=== PATIENT | female | born 1960 | race Two or more races ===

== ENCOUNTER 2016-12-02 20:42 | Outpatient (CLI) | payer MEDICARE | END 2016-12-02 20:43 | disposition critical access hospital (66) | LOC: EMS 20:42 | PROVIDERS: ATTEND Surgery | DX: M25.562 Pain in left knee (principal); Y09 Assault by unspecified means | CPT/HCPCS: A0425; A0429 ==

== ENCOUNTER 2016-12-02 21:00 | Emergency (ER) | payer MEDICARE ==
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
[2016-12-02 22:53] VITALS: BP 169/98
--- NOTE | 2016-12-02 22:58 | XRAY Preliminary Report ---
Exam: XR Shoulder 3 View RT IMPRESSION: 1. No acute abnormality seen in the shoulder. [facility] SITE ID: [id number]
--- NOTE | 2016-12-02 22:59 | XRAY Preliminary Report ---
Exam: XR Femur 2V RT IMPRESSION: 1. No acute abnormality seen in the femur. [facility] SITE ID: [id number]
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
--- NOTE | 2016-12-02 23:01 | XRAY Preliminary Report ---
Exam: XR Toe(s) LT IMPRESSION: 1. No acute fracture or dislocation seen. [facility] SITE ID: [id number]
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
--- NOTE | 2016-12-02 23:04 | XRAY Report ---
EXAM: LEFT TOE RADIOGRAPHY EXAM DATE: 12/02/2016 10:38 PM. CLINICAL HISTORY: Pain after injury. COMPARISON: None. TECHNIQUE: 3 views. FINDINGS: Bones: No acute fracture seen. Joints: No dislocation. Joint spaces appear intact. Soft Tissues: Mild soft tissue swelling. IMPRESSION: 1. No acute fracture or dislocation seen. [facility] Referring Provider Line: [phone] SITE ID: [id number]
== END 2016-12-02 22:53 | disposition home or self-care (01) ==
LOC: EDBD → ED 21:00
DX: T14.8 Other injury of unspecified body region (principal); Y08.89XA Assault by other specified means, initial encounter; Y92.009 Unspecified place in unspecified non-institutional (private) residence as the place of occurrence of the external cause; G35 Multiple sclerosis; R03.0 Elevated blood-pressure reading, without diagnosis of hypertension
CPT/HCPCS: 73660; 99283